=== PATIENT | female | born 1995 | race Caucasian/White ===

== ENCOUNTER 2016-09-15 14:49 | Inpatient (IN) ==
[2016-09-15] MEDS ORDERED: MORPHINE IV PRN (16:00)
[2016-09-15] MEDS ORDERED: NS 1,000 ML IV ONE (16:00)
[2016-09-15 16:44] LABS: URINE CULTURE NEEDED? NO; URINE MICRO REVIEW NEEDED? NO; URINE SOURCE CLEAN CATCH
[2016-09-15 16:48] LABS: BILIRUBIN URINE NEGATIVE (NEGATIVE); BLOOD URINE TRACE (NEGATIVE); COLOR YELLOW; GLUCOSE URINE NEGATIVE (NEGATIVE); LEUKOCYTES URINE TRACE (NEGATIVE); NITRITE URINE NEGATIVE (NEGATIVE); PROTEIN URINE 30 mg/dL (NEGATIVE); SP GRAVITY URINE 1.013; TURBIDITY URINE CLEAR (CLEAR); UR EPITHELIAL CELLS <10 /HPF (<10); URINE BACTERIA NEGATIVE /HPF; URINE RBC <10 /HPF (<10); UROBILINOGEN URINE NORMAL (NORMAL)
[2016-09-15 17:13] LABS: HEMATOCRIT 43.9 % (37.0-47.0); HEMOGLOBIN 14.4 g/dL (12.0-16.0); MCH 29.9 PG (27-31); MCHC 32.8 g/dL (33-37); MCV 91.3 FL (81-99); MPV 11.7 FL (7.4-10.4); RBC 4.81 XMIL (4.2-5.4)
[2016-09-15 17:21] LABS: INR 1.08; PROTIME 11.4 Seconds (9.2-11.7)
[2016-09-15 17:32] LABS: AGAP 12; ALKALINE PHOSPHATASE 58 U/L (32-104); BUN 7 mg/dL (8-22); CALCIUM 9.1 mg/dL (8.8-10.2); CHLORIDE 98 mmol/L (98-107); COSMO 266; GOT 14 U/L (10-30); GPT 8 U/L (10-36); MAGNESIUM 2.1 mg/dL (1.5-2.7); POTASSIUM 3.9 mmol/L (3.5-5.1); SODIUM 134 mmol/L (136-145); TCO2 24 mmol/L (25-35); TOTAL BILIRUBIN 0.75 mg/dL (0.20-1.00); TOTAL PROTEIN 7.4 g/dL (6.3-8.3)
[2016-09-15] MEDS: ROCEPHIN 1 GM/NS 1 GM/50 ML IVPB IV SCH (17:53)
[2016-09-15] MEDS: DILAUDID IV PRN ×2 (17:54→22:49)
[2016-09-15] MEDS: ZOFRAN IV PRN (18:02)
--- NOTE | 2016-09-15 18:57 | Diag Imaging Result Doc PS360 ---
EXAM: FLAT/UPRIGHT ABD/1 VIEW CHEST HISTORY: pyelonephritis TECHNIQUE: Flat and upright abdomen and PA chest COMMENT: There are multiple surgical clips and suture lines around the stomach. There are air-fluid levels in the colon which is not otherwise distended. There is some small bowel gas, however there is no evidence of obstruction. No evidence of organomegaly or mass is present. CHEST: The appearance of the chest has not changed significantly since 02/19/2015. IMPRESSION: No acute disease. Electronically signed by Ayaan Morales 09/15/2016 6:55 PM
--- NOTE | 2016-09-15 19:44 | HISTORY AND PHYSICAL ---
PCP: Dr. Jewels Maki. CHIEF COMPLAINT: Flank pain. HISTORY OF PRESENT ILLNESS: Mrs. Staples is a 21-year-old female with a history of asthma and depression who is directly admitted from Dr. Jewels Maki's office for concern for worsening pyelonephritis. Patient was actually seen in the ER yesterday at which time she had a renal CT done which showed some possible pyelonephritis on the right as well as evidence of UTI and elevated white count. Symptoms have been going on since Thursday. She has been having right flank pain with dysuria with associated fever with nausea and vomiting. When she came to the ER yesterday she was given antibiotics and discharged home. She followed up with Dr. Maki today with worsening complaints than with ultimately directly admitted to our facility. LABS AND DIAGNOSTICS: Currently pending, she is now going to be admitted for further treatment and evaluation. PAST MEDICAL HISTORY: 1. Asthma. 2. Depression. PAST SURGICAL HISTORY: 1. Sleeve gastrectomy. 2. Septoplasty. 3. Tonsillectomy. SOCIAL HISTORY: Patient denies tobacco, alcohol or drug use. She is single and has no children. 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 Mother and grandmother at the bedside. FAMILY HISTORY: Noncontributory. REVIEW OF SYSTEMS: Fourteen-point review of systems obtained and found to be negative with the exception of the HPI. HOME MEDICATIONS: Currently being compiled. ALLERGIES: To adhesives. PHYSICAL EXAMINATION: VITAL SIGNS: Blood pressure is 111/69, heart rate 107, respiratory rate 16, O2 saturation 100% on room air, temperature is 98 degrees Fahrenheit. GENERAL: A well-developed, well-nourished female lying in hospital bed in no acute distress. NEUROLOGIC: The patient is awake, alert and oriented. She follows commands without focal deficits. HEENT: Head atraumatic and normocephalic. Her pupils are equal, round, reactive to light. Oral mucosa is moist. Trachea is midline. There is no JVD or carotid bruits. CHEST: Clear to auscultation bilaterally. CV: Regular rate and rhythm. S1-S2 is noted. No murmurs. GI: Is soft. She has right lower tenderness to palpation and right CVA tenderness, belly overall is nondistended and soft. EXTREMITIES: No edema, clubbing or cyanosis, 2+ pulses in all 4 extremities. DIAGNOSTIC DATA: Pending. ASSESSMENT AND PLAN: 1. Right-sided pyelonephritis: We are going to check blood cultures and lactic acid level, CMP and CBC as well as urinalysis. Will also check an abdomen and chest x-ray and start her on Rocephin, IV fluids, pain medication and antiemetics. Urine test done yesterday showed gram- negative rods with culture and sensitivity pending. 2. Depression: Chronic and stable, continue home medications. 3. Asthma: Chronic and stable. Patient denies any shortness of breath. Will continue her p.r.n. inhaler. 4. Deep vein thrombosis prophylaxis with Lovenox. Further recommendations to follow. Dictated by MICHAEL Vicente for Maria D Tamayo MD cc: MICHAEL Vicente MD Dr. Lindsay Smith
[2016-09-15] MEDS: NORCO-7.5 PO PRN (21:14)
[2016-09-15] MEDS: NS 1,000 ML IV SCH (22:55)
[2016-09-16] MEDS: DILAUDID IV PRN ×2 (03:41→08:13)
[2016-09-16] MEDS: NS 1,000 ML IV SCH ×2 (06:54→15:15)
[2016-09-16 06:58] LABS: MANUAL DIFF NEEDED? NO
[2016-09-16] MEDS: ZOFRAN IV PRN ×4 (07:00→20:03)
[2016-09-16 07:07] LABS: BASO% 0.3 % (0.0-0.8); EOS# 0.05 X1000 (0.0-0.7); EOS% 0.7 % (0.0-10.0); HEMATOCRIT 38.4 % (37.0-47.0); HEMOGLOBIN 12.5 g/dL (12.0-16.0); IMM GRAN# 0.02 X1000 (0.0-0.04); IMM GRAN% 0.3 % (0.0-0.5); LYMPH# 1.76 X1000 (1.2-3.4); LYMPH% 23.1 % (20.5-51.1); MCH 29.8 PG (27-31); MCHC 32.6 g/dL (33-37); MCV 91.6 FL (81-99); MONO# 1.36 X1000 (0.11-0.59); MONO% 17.8 % (1.7-9.3); MPV 12.2 FL (7.4-10.4); NEUT% 57.8 % (42.2-75.2); PLT 141 X1000 (130-400); RBC 4.19 XMIL (4.2-5.4)
[2016-09-16 07:42] LABS: AGAP 11; BUN 4 mg/dL (8-22); CALCIUM 8.3 mg/dL (8.8-10.2); CHLORIDE 102 mmol/L (98-107); COSMO 272; POTASSIUM 3.8 mmol/L (3.5-5.1); SODIUM 138 mmol/L (136-145); TCO2 25 mmol/L (25-35)
[2016-09-16] MEDS: BENTYL PO SCH ×3 (08:12→16:16)
[2016-09-16] MEDS: LOVENOX SUBQ SCH (08:13)
[2016-09-16] MEDS: CELEXA PO SCH (09:23)
[2016-09-16] MEDS: PATIENT'S OWN MED PO SCH ×2 (09:24)
[2016-09-16] MEDS: NORCO-7.5 PO PRN ×2 (15:15→21:24)
[2016-09-16] MEDS: ROCEPHIN 1 GM/NS 1 GM/50 ML IVPB IV SCH (16:06)
--- NOTE | 2016-09-16 17:28 | CONSULTATION ---
DATE OF CONSULTATION: 09/16/2016 CONCLUSION: This 21-year-old female is admitted to the hospital with a right pyelonephritis. On CT scan there is possible hydronephrosis suggesting that there may be a blockage in the right ureter although on the CT scan no stone was seen. If there is a blockage that certainly would predispose the patient to developing pyelonephritis. She does have some small stones in the left kidney and possibly she had a stone in the right ureter which she has subsequently passed. RECOMMENDATIONS: The patient is receiving Rocephin and her white count is coming down and she is afebrile. Therefore I think it would be good to continue with that same antibiotic. Also, Dr. Tamayo and I have discussed it and we think would be a good idea to get an a urologist to look at the patient in view of the fact that there may be a partial obstruction. DISCUSSION: This young female tells me approximately 4 days ago, she had the sudden onset of fever and chills associated with dysuria and intense right flank pain which radiated around anteriorly to just below the right chest. The patient was having dyspnea and also she had in increase in the pain in her anterior part of the abdomen and chest when she took a deep breath. She has had nausea but not vomiting. Her CBC shows white count went from 11,952 to 7630 today with a hemoglobin of 12.5 and a platelet count of 141,000. Blood cultures are pending. The urine culture is negative at day 1. Chest x-ray and KUB showed no acute disease. A renal CT scan shows possible mild right hydronephrosis. No stone was seen on the right side but There were tiny stones in the left kidney. PAST MEDICAL HISTORY/REVIEW OF SYSTEMS: HEENT: Eyes and ears, patient wears glasses. Her hearing is okay. Neck: No stiffness. Respiratory: As mentioned above, the patient is having pain when she tries to take a deep breath but this has only been in the past 4 days since she has been ill. Prior to that, she was not having any trouble breathing. Cardiac: She is having lower very low right-sided chest pain. Again, I think this is due to the patient's pyelonephritis in that the pain only started 4 days ago Gastrointestinal: As mentioned above, the patient has been nauseated in the past 4 days. The patient tells me that she normally just has 1 stool per weak. Genitourinary: As mentioned above, the patient is having dysuria and flank pain. Endocrine: The patient does not have diabetes or thyroid disease. Bones/joints/muscles: She is not having any swelling of the joints or myalgias. Neurologic: No seizures or motor or sensory loss. Integument: No rash. Hematologic: No history of anemia or bleeding tendency. CLOSING COORDINATOR: The patient has never been . Her last menstrual period was 2 weeks ago which she says is the normal time. PREVIOUS HOSPITALIZATIONS AND OPERATIONS: She has had a sleeve gastrectomy, septoplasty, tonsillectomy and extraction of wisdom teeth. She has also been admitted once for dehydration. MEDICAL DISEASES: Positive for asthma, anxiety and depression. INFECTIOUS DISEASE HISTORY: Positive for UTI but never one as severe as this one. Negative for pneumonia. FAMILY HISTORY: Positive for hypertension, myocardial infarction, stroke, and cancer. SOCIAL HISTORY: [place] She does not smoke cigarettes, drink alcoholic beverages or abuse drugs. She is single. 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 She has dogs for pets. 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 ALLERGIES: Her chart lists allergies to adhesive tape. HOME MEDICATIONS: Bentyl, Protonix, Celexa, Macrobid, hydrocodone, control pill Nortrel 1- 35 and Zofran. PHYSICAL EXAMINATION: Vital Signs: Temperature now is 97.5, pulse 68, respirations 19, blood pressure 97/51. General: This is an ill-appearing, young female. She is in no acute distress. Head, eyes, ears, nose, and throat: She can hear my spoken words and see near objects. No drainage is noted from the nose or ears. Inspection of the mouth showed no mucosal lesions. Neck: No meningismus. Thorax: No increased AP diameter of the chest. Lungs: Clear to auscultation. Cardiovascular: Regular heart rate. Abdomen: Patient is very tender in the right upper part of the abdomen and the right CVA area. Neurologic: Patient is alert. She can move her extremities. There is no tremor. Her sensation is intact to touch. Her memory, as regarding her medical history is intact. Integument: No rash noted. Thank you for the consult. cc: Juan Carlos Lynn MD
--- NOTE | 2016-09-16 20:00 | CONSULTATION ---
DATE OF CONSULTATION: 09/16/2016 CONSULTING PHYSICIAN: Ranulfo De La Garza MD. REASON FOR CONSULTATION: Pyelonephritis. HISTORY OF PRESENT ILLNESS: A 21-year-old female with a reported previous history of recurrent UTIs presented with right flank pain, nausea and vomiting. She presented to the emergency room. She underwent CT scan which revealed right pyelonephritis. She was discharged from the emergency room but then re-presented to her family doctor and subsequently admitted. She currently denies gross hematuria, fevers or chills. PAST MEDICAL HISTORY: 1. Reactive airway disease. 2. Depression. 3. Recurrent UTIs. PAST SURGICAL HISTORY: Sleeve gastrectomy, tonsillectomy, septoplasty. HOME MEDICATIONS: Per APR. ALLERGIES: Allergic to adhesive tape. SOCIAL HISTORY: Denies tobacco, alcohol or drug use. FAMILY HISTORY: Negative for malignancies. REVIEW OF SYSTEMS: Reviewed per records and is negative with exception to the HPI. PHYSICAL EXAMINATION: Vital Signs: T 97.5 degrees, P of 68, BP 97/51. General: No acute distress. HEENT: Normocephalic, atraumatic. Abdomen: Nontender, nondistended. Genitourinary: Nontender to palpation. Back: No CVA tenderness. Neurologic: Alert and oriented x3. Psychiatric: Appropriate mood and affect. PERTINENT LABORATORY DATA: White cell count of 8000, hematocrit 38, creatinine 0.7. PERTINENT IMAGES: CT abdomen and pelvis without contrast on 09/14/2016 revealing very tiny small left lower pole renal stones and no evidence of right renal or ureteral stone. There is hydronephrosis on the right side. I agree with interpretation of radiologist. ASSESSMENT AND PLAN: A 21-year-old female with reported recurrent urinary tract infections who is admitted with pyelonephritis, flank pain, nausea and vomiting. We discussed a conservative approach which is what I would recommend versus cystoscopy with right retrograde pyelogram and possible right ureteral stent placement. We agree to observe for now unless her condition worsens. I also agree with IV antibiotics. We discussed that if she does not improve she will be a candidate for cystoscopy with right retrograde pyelogram and possible right ureteral stent placement. Again I do not see an obstructive stone or mass to warrant emergent intervention. I have answered questions with her family present at the bedside. PLAN: 1. I agree with IV antibiotics. 2. We will monitor clinically and if her condition worsens we will consider intervention with cystoscopy, retrograde pyelogram and ureteral stent. Thank you for the consultation. cc: Ranulfo De La Garza MD
[2016-09-17] MEDS: NS 1,000 ML IV SCH ×3 (00:04→17:58)
[2016-09-17] MEDS: ZOFRAN IV PRN ×3 (00:04→20:10)
[2016-09-17] MEDS: NORCO-7.5 PO PRN ×3 (03:31→21:56)
[2016-09-17 06:17] LABS: MANUAL DIFF NEEDED? NO
[2016-09-17 06:44] LABS: AGAP 10; BUN 5 mg/dL (8-22); CALCIUM 8.2 mg/dL (8.8-10.2); CHLORIDE 109 mmol/L (98-107); COSMO 280; POTASSIUM 4.1 mmol/L (3.5-5.1); SODIUM 142 mmol/L (136-145); TCO2 23 mmol/L (25-35)
[2016-09-17 07:36] LABS: BASO% 0.3 % (0.0-0.8); EOS# 0.15 X1000 (0.0-0.7); EOS% 2.1 % (0.0-10.0); HEMATOCRIT 34.3 % (37.0-47.0); HEMOGLOBIN 11.2 g/dL (12.0-16.0); IMM GRAN# 0.02 X1000 (0.0-0.04); IMM GRAN% 0.3 % (0.0-0.5); LYMPH# 2.04 X1000 (1.2-3.4); LYMPH% 28.2 % (20.5-51.1); MCH 29.9 PG (27-31); MCHC 32.7 g/dL (33-37); MCV 91.5 FL (81-99); MONO# 1.23 X1000 (0.11-0.59); MPV 12.1 FL (7.4-10.4); NEUT% 52.1 % (42.2-75.2); PLT 135 X1000 (130-400); RBC 3.75 XMIL (4.2-5.4)
[2016-09-17] MEDS: CELEXA PO SCH (09:43)
[2016-09-17] MEDS: BENTYL PO SCH ×3 (09:44→20:10)
[2016-09-17] MEDS: PATIENT'S OWN MED PO SCH ×2 (09:44)
[2016-09-17] MEDS: LOVENOX SUBQ SCH (09:44)
[2016-09-17] MEDS ORDERED: DILAUDID IV PRN (11:22)
[2016-09-17] MEDS ORDERED: SENOKOT PO ONE (13:53)
[2016-09-17] MEDS ORDERED: DULCOLAX PO ONE (13:54)
[2016-09-17] MEDS: ROCEPHIN 1 GM/NS 1 GM/50 ML IVPB IV SCH (15:36)
[2016-09-17] MEDS ORDERED: DULCOLAX PR ONE (15:42)
--- NOTE | 2016-09-17 18:18 | PROGRESS NOTE ---
DATE: 09/17/2016 SUBJECTIVE: The patient continues to complain of severe right flank pain as well as nausea. The patient states that she still does not feel well. OBJECTIVE: Vital Signs: Temperature 97.9 degrees, blood pressure 121/63, heart rate 81 respirations 18, O2 saturations 99% on room air. General: This is a young female, lying in bed, in no acute distress. Head: Normocephalic atraumatic. Heart: S1, S2. Normal. Regular rate and rhythm. Lungs: Clear to auscultation bilaterally. Abdomen: Positive bowel sounds. Soft, nontender, nondistended. Extremities: No edema. No cyanosis. No calf tenderness. Right flank positive for CVA tenderness. Neurologic: The patient is alert and oriented x3. LABS: White blood cell count 7.2, hemoglobin 11, hematocrit 34, platelets 135,000, sodium 142, potassium 4.1, chloride 99, CO2 23, BUN 5, creatinine of 0.6. ASSESSMENT AND PLAN: 1. Acute pyelonephritis secondary to E. coli. Continue on IV Rocephin. Dr. Lynn is following. 2. Right hydronephrosis. The urologist is following. The patient may require a stent placement. Will await further recommendations from the urologist. 3. Leukocytosis. Resolved. 4. Nausea. Continue on p.r.n. Zofran. 5. Situational depression. Continue on Celexa. 6. Constipation. We will start the patient on scheduled laxative therapy. 7. Deep vein thrombosis prophylaxis. Continue on Lovenox. cc: Maria D Tamayo MD
--- NOTE | 2016-09-17 19:13 | PROGRESS NOTE ---
DATE: 09/17/2016 PRESENT ILLNESS: The patient has a urinary tract infection with right-sided pyelonephritis. I suspect what happened was that the patient had a stone in the ureter which was enough to cause the infection and to cause very mild hydronephrosis. Fortunately she appeared to be able to pass it so by the time we got the CT scan no stone was visible. MEDICATIONS: The patient is on Rocephin. PHYSICAL EXAMINATION: Vital Signs: Temperature is 97.9 degrees, pulse 81, respirations 18, blood pressure 121/63. General: The patient looks much better today. She is smiling. She is saying most all of her pain is gone. Lungs: Clear to auscultation. Cardiovascular: Heart rate is regular. Abdomen/Flanks: The abdomen and flanks were soft. There was just very minimal tenderness in the right flank. Neurologic: Patient is alert. She can move her extremities. There is no tremor. LAB AND X-RAY: Blood cultures are negative. Urine culture grew a mixed growth. test was negative. Today the patient's CBC showed a white count of 7230, hemoglobin 11.2, and platelet count 135,000. Creatinine was 0.6. GFR is greater than 60. ASSESSMENT AND PLAN: The patient has pyelonephritis due to a stone most likely that was in the ureter and then was passed spontaneously. The patient still has stones in the left kidney. I have printed out a prescription for Ceftin 500 mg every 12 hours for 2 weeks. I have requested that the patient see me in the office in 2 weeks but I told her that if she feels fine she can cancel the appointment. The patient does have stones and I advised her to check with her personal physician, Dr. Jewell Maki, if anything can be done to prevent stone formation or if necessary break them up. Dr. De La Garza also is on the case and he said that for now he would not do anything further with the stones unless they cause a problem. He said for the patient to call him if she has any problems. COMORBIDITIES: She does have renal calculi. cc: MD ENRIQUE Jonas
[2016-09-17] MEDS: MIRALAX PO SCH (20:10)
[2016-09-18] MEDS: NS 1,000 ML IV SCH ×2 (04:42→06:05)
[2016-09-18 06:41] LABS: HEMATOCRIT 35.8 % (37.0-47.0); HEMOGLOBIN 11.7 g/dL (12.0-16.0); MCH 30.2 PG (27-31); MCHC 32.7 g/dL (33-37); MCV 92.3 FL (81-99); MPV 11.7 FL (7.4-10.4); RBC 3.88 XMIL (4.2-5.4)
[2016-09-18 07:07] LABS: AGAP 9; BUN 4 mg/dL (8-22); CALCIUM 8.1 mg/dL (8.8-10.2); CHLORIDE 104 mmol/L (98-107); COSMO 277; POTASSIUM 3.9 mmol/L (3.5-5.1); SODIUM 141 mmol/L (136-145); TCO2 28 mmol/L (25-35)
[2016-09-18 07:16] VITALS: BP 102/62
[2016-09-18] MEDS: LOVENOX SUBQ SCH (08:43)
[2016-09-18] MEDS: MIRALAX PO SCH (08:43)
[2016-09-18] MEDS: BENTYL PO SCH (08:43)
[2016-09-18] MEDS: CELEXA PO SCH (08:43)
[2016-09-18] MEDS: PATIENT'S OWN MED PO SCH ×2 (08:44)
--- NOTE | 2016-09-18 10:24 | PROGRESS NOTE ---
DATE: 09/16/2016 SUBJECTIVE: The patient is complaining of nausea and right flank pain. OBJECTIVE: VITAL SIGNS: Temperature 97.6, blood pressure 98/49, heart rate 79, respirations 17, O2 saturation 99% on room air. GENERAL: This is a young female sitting in bed in no acute distress. HEENT: Head atraumatic, normocephalic. HEART: S1 and S2 normal. Regular rate and rhythm. LUNGS: Clear to auscultation. No wheezing, no rales, no rhonchi. ABDOMEN: Positive bowel sounds. Soft, nontender, nondistended. Flanks positive for tenderness in the right flank area. EXTREMITIES: No edema. No cyanosis. No calf tenderness. NEUROLOGIC: The patient is alert and oriented x3. LABORATORIES: White blood cell count 7.6, hemoglobin 12, hematocrit 38, platelets 141,000. Sodium 138, potassium 3.8, chloride 102, CO2 of 25, BUN 4, creatinine 0.7, glucose 92. ASSESSMENT AND PLAN: 1. Escherichia coli pyelonephritis. The urine culture from 09/14/2016 is growing Escherichia coli that is pansensitive. Will continue on Rocephin. 2. Nausea with vomiting. Will discontinue the Dilaudid and restart the patient's Narco for pain management. 3. Situational depression. Continue on Celexa. 4. Leukocytosis, resolved. 5. Deep vein thrombosis prophylaxis. Continue on Lovenox. cc: Maria D Tamayo MD
--- NOTE | 2016-09-21 00:09 | DISCHARGE SUMMARY ---
ADMISSION DATE: 09/15/2016 DISCHARGE DATE: 09/18/2016 PRIMARY CARE PHYSICIAN: Dr. Jewels Maki. FINAL DISCHARGE DIAGNOSES: 1. Acute pyelonephritis secondary to Escherichia coli. 2. Right hydronephrosis. 3. Nephrolithiasis. 4. Leukocytosis. 5. Situational depression. CONSULTATIONS REQUESTED DURING THIS HOSPITAL STAY: 1. ID consultation with Dr. Juan Carlos Lynn. 2. Urology consultation with Dr. De La Garza. HOSPITAL COURSE: Ms. Staples is a 21-year-old female who was sent as a direct admission with acute pyelonephritis. On admission the patient was noted to have a leukocytosis of 11,950 and the patient was also noted to have pretty significant right flank tenderness. A urinalysis and urine culture were obtained and the patient was started on IV Rocephin. On the day prior to admission the patient had a renal CT done that showed mild hydronephrosis on the right and tiny nonobstructing stone in the lower left kidney. As a result of these findings urology was consulted. Also Infectious Disease was consulted. Slowly over the course of the hospitalization the patient's symptoms improved with IV fluids and antibiotic therapy. The patient was seen by the urologist and it was recommended that we continue with antibiotic therapy and if the patient worsens then cystoscopy would be indicated. The patient continued to improve clinically and her nausea and vomiting resolved and the patient was ultimately transitioned to oral antibiotic therapy by Dr. Lynn. The patient was cleared for discharge home on 09/18/2016. DISCHARGE MEDICATIONS: 1. Ceftin 500 mg p.o. every 12 hours. 2. Celexa 40 mg p.o. daily. 3. [place] 7.5/325 one tab oral every 8 hours p.r.n. for pain. 4. Zofran 4 mg p.o. 3 times a day p.r.n. for nausea and vomiting. 5. Protonix 20 mg p.o. daily. 6. Bentyl 20 mg p.o. daily. 7. Nortrel 1 tab oral daily. DISCHARGE DIET: Regular diet. ACTIVITY: As tolerated. FOLLOWUP INSTRUCTIONS: The patient has been advised to follow up with Dr. Juan Carlos Lynn on 10/06/2016 at 11 a.m. The patient will need to follow up with Dr. Jewels Maki in 1-2 weeks. cc: MD Dr. Jewels Harry
--- NOTE | 2016-09-21 16:44 | PROGRESS NOTE ---
DATE: 09/17/2016 SUBJECTIVE: Ms. Staples reports continued flank pain as well as nausea. She desires intervention. She denies gross hematuria. OBJECTIVE: Vital Signs: T 97.9 degrees, P 81, BP 121/63. General: No acute distress. Abdomen: Nontender, nondistended. Back: No CVA tenderness. PERTINENT LABS: White cell count of 7,000, hematocrit 34, creatinine of 0.6. Her final urine culture came back as mixed marisol. ASSESSMENT: This is a 21-year-old female with pyelonephritis with a considerable amount of pain associated with nausea. I have had a conversation with the patient, her mother and grandmother who were at bedside regarding pyelonephritis typically treated conservatively with IV antibiotics and pain control. She did have some hydronephrosis on imaging I have explained to her that cystoscopy with right ureteral stent may be useful but at the same time it may not resolve her pain. We also discussed that her pain could be due to other reasons. She wants to proceed with cystoscopy and right ureteral stent placement. We discussed risks, including but not limited to, bleeding, infection, injury to the bladder, injury to adjacent structures, need for additional interventions, as well as failure to relieve pain. PLAN: To the operating room later for cystoscopy and placement of right ureteral stent. ADDENDUM: I was contacted by Dr. Lynn later who was examining the patient, when the patient stated that her symptoms have drastically improved and she no longer desires to have the stent placed. Hence, we canceled the procedure. cc: Ranulfo De La Garza MD
== END 2016-09-18 12:12 | disposition home or self-care (01) ==
LOC: DIRADM 14:49 → SUATTDRO 14:49 → 3N 15:23
PROVIDERS: ATTEND Internal Medicine